=== PATIENT | male | born 1990 | race Caucasian/White ===

== ENCOUNTER 2020-08-04 15:31 | Outpatient (REF) | payer OTHER, SELFPAY ==
[2020-08-05 10:55] LABS: SARS COV2 PCR INHOUSE POSITIVE (Negative)
== END 2020-08-04 15:32 | disposition home or self-care (01) ==
LOC: HO.LAB 15:31
PROVIDERS: Visit Provider Internal Medicine
DX: Z20.822 Contact with and (suspected) exposure to COVID-19 (principal)
CPT/HCPCS: C9803; U0003